=== PATIENT | male | born 1945 | race Caucasian/White ===

== ENCOUNTER 2021-03-10 21:09 | Inpatient (IN) | payer OTHER, MEDICARE ==
[~2021-03-10] VITALS: Ht 180.3 cm; Wt 81.1 kg
[~2021-03-10 21:09] MED LIST: AMOCLA875 PO; BENAML20/5 PO; HYDR1TAB94 PO; LOSHYD PO
[2021-03-10 21:48] LABS: BASOPHILS ABSOLUTE AUTO 0.08 K/mm3 (0.00-0.23); BASOPHILS PERCENT AUTO 1 % (0-2); EOSINOPHILS ABSOLUTE AUTO 0.21 K/mm3 (0.00-0.68); EOSINOPHILS PERCENT AUTO 2 % (0-6); Hematocrit 44.9 % (37.0-53.0); Hemoglobin 14.6 g/dL (13.5-17.5); IMMATURE GRAN ABSOLUTE AUTO 0.04 K/mm3 (0.00-0.10); IMMATURE GRAN PERCENT AUTO 0 % (0-1); LYMPHOCYTES ABSOLUTE AUTO 2.03 K/mm3 (0.84-5.20); LYMPHOCYTES PERCENT AUTO 19 % (21-46); MONOCYTES PERCENT AUTO 9 % (4-13); Mean Corpuscular HGB 28.2 pg (26.0-34.0); Mean Corpuscular HGB Conc 32.5 g/dL (31.5-36.5); Mean Corpuscular Volume 87 fL (80-100); Mean Platelet Volume 10.8 fL (9.1-12.4); NEUTROPHILS ABSOLUTE AUTO 7.24 K/mm3 (1.96-9.15); NEUTROPHILS PERCENT AUTO 68 % (41-73); Platelet Count 221 K/mm3 (150-400); RDW Coefficient Variation 14.6 % (11.7-14.2); RDW Standard Deviation 46.5 fL (35.1-46.3); Red Blood Cell Count 5.17 M/mm3 (4.30-5.90)
[2021-03-10 22:08] LABS: Alanine Aminotransfer (ALT/SGP 32 U/L (12-78); Albumin, Blood 3.7 g/dL (3.4-5.0); Albumin/Globulin Ratio 0.9 (0.8-1.8); Alk Phos 61 U/L (50-136); Anion Gap 4 mmol/L (6-16); Aspartate Aminotrans (AST/SGOT 21 U/L (12-37); Bilirubin, Total 0.4 mg/dL (0.1-1.0); Blood Urea Nitrogen 16 mg/dL (8-24); Bun/Creatinine Ratio 16.1 (12.0-20.0); CO2, Blood 27 mmol/L (21-32); Calcium, Blood 9.2 mg/dL (8.5-10.1); Chloride, Blood 108 mmol/L (98-108); Creatinine, Blood 0.99 mg/dL (0.60-1.20); Glomerular Filtration Rate >60 (60-); Glucose, Blood 127 mg/dL (70-99); Sodium, Blood 139 mmol/L (136-145); Total Protein, Blood 7.7 g/dL (6.4-8.2)
[2021-03-11 00:04] LABS: International Normalized Ratio 1.03; Prothrombin Time Results 10.8 Sec (9.7-11.5)
[2021-03-11 01:51] LABS: Influenza A, PCR NEGATIVE (NEGATIVE); Influenza B, PCR NEGATIVE (NEGATIVE); Resp Syncytial Virus, PCR NEGATIVE (NEGATIVE); SARS-Cov-2 (COVID-19) PCR, MMC NEGATIVE (NEGATIVE)
--- NOTE | 2021-03-11 05:54 | NUR ---
SHIFT SUMMARY ASSUMED CARE OF PT 0200. PT IS A/OX4. HEART SOUNDS REGULAR, LUNG SOUDNS CLEAR. PT GAIT IS STEADY. ELECTRICAL CONTROLS ENGINEER STRENGTH EQUAL AND PLANTAR AND DORSAL FLEXTION EQUAL. PT ONLY COMPLAINT WAS NUMBNESS ON HIS R SIDE. THIS AM DURING MORENING VIALS PT STATED THAT THE NUMBNESS WAS GETTING BETTER. CALL LIGHT IN REACH, BED IN LOWEST POSTION.
--- NOTE | 2021-03-11 11:33 | NUR ---
AM ASSESSMENT: PATIENT A&O X4, PLEASANT. PATIENT REPORTS NUMBNESS HAS LESSENED BUT STILL PRESENT. DR. CEDENO ROUNDED AND ORDERED MRI. HE WOULD LIKE TO D/C PATIENT TODAY PENDING WHAT MRI SHOWS. PT WORKED WITH PATIENT AND EDUCATED HOW TO USE A CANE. PATIENT IS VERY ACTIVE IN HIS HOME LIFE AND LIKES TO MOVE AROUND THE ROOM. PATIENT WAS TAKEN OFF TELEMETRY AND TRANSFERRED TO RADIOLOGY AROUND 1130. THIS RN SPOKE TO THE AT 1030 AND UPDATED HER ON THE CARE PLAN. IS UNABLE TO DRIVE AT NIGHT SO WILL NEED A COUNTY COURT JUDGE IF PATIENT IS D/C'D AFTER 1600.
[2021-03-11] MEDS ORDERED: Aspir 8181 MG PO (14:13)
[2021-03-11] MEDS ORDERED: Crestor20 MG PO (14:14)
[2021-03-11] MEDS ORDERED: CLOP75 PO (14:14)
[2021-03-11] MEDS ORDERED: Prinivil10 MG PO (14:21)
--- NOTE | 2021-03-11 15:16 | NUR ---
SHIFT SUMMARY: PATIENT WILL FOLLOW-UP WITH [facility] FOR ECHO. EDUCATION RE: STROKE AND NEW MEDICATIONS WAS PROVIDED. DISCHARGED AT 1500 TO HOME. PATIENT WAS WHEELED TO 'S VEHICLE. RX WAS SENT TO [facility] VIA FAX. PATIENT TO FOLLOW UP WITH PCP.
--- NOTE | 2021-03-11 18:57 | NUR ---
PRESCRIPTIONS WERE FAXED TO [facility] PER PATIENT REQUEST. PATIENT IS A [facility] AND WANTED TO DIRECTOR FOOD AND BEVERAGE HIS MEDICATIONS AT [facility] ON THE WEEKEND. MULTIPLE ATTEMPTS TO CALL [facility] TO CONFIRM PRESCRIPTIONS BUT THEY DID NOT ANSWER.
== END 2021-03-11 15:15 | disposition home or self-care (01) | DRG 305 ==
LOC: ER 21:09 → PCU 03-11 01:25
PROVIDERS: Physician Assistant; Student in an Organized Health Care Education/Training Program; ADMIT Internal Medicine
DX: I16.0 Hypertensive urgency (principal); G45.9 Transient cerebral ischemic attack, unspecified; I10 Essential (primary) hypertension; Z91.14 Patient's other noncompliance with medication regimen; Z86.73 Personal history of transient ischemic attack (TIA), and cerebral infarction without residual deficits; Z90.49 Acquired absence of other specified parts of digestive tract; Z87.891 Personal history of nicotine dependence; Z20.822 Contact with and (suspected) exposure to COVID-19; Z79.899 Other long term (current) drug therapy; Z23 Encounter for immunization; Z88.1 Allergy status to other antibiotic agents; Z98.890 Other specified postprocedural states; R29.701 NIHSS score 1
CPT/HCPCS: 0241U; 36415; 70450; 70551; 80053; 82947; 85025; 85610; 93005; 93010; 97110; 97116; 97161; 99285-25; A9270; G0378

== ENCOUNTER 2023-04-03 09:36 | Day surgery (SDC) | payer MEDICARE ==
[~2023-04-03] VITALS: Ht 180.3 cm; Wt 82.2 kg
[~2023-04-03 09:36] MED LIST changes: +AMLODIPINE-BEN1 EACH PO; +Aspir 8181 MG PO; +CLOP75 PO; +Crestor20 MG PO; +HYDCHL12.5 PO; +Prinivil10 MG PO
[2023-04-03 12:17] VITALS: BP 133/69
--- NOTE | 2023-04-03 12:19 | NUR ---
04/03/23 1219 Jessica Luu IV DC'D, CATH INTACT. PT TOLERATED WELL. GAUZE/COBAN IN PLACE
== END 2023-04-03 12:19 | disposition home or self-care (01) ==
LOC: ORSCSDS 09:36
PROVIDERS: Internal Medicine Gastroenterology
PROC: 0DBN8ZZ Excision of Sigmoid Colon, Via Natural or Artificial Opening Endoscopic (ICD-10-PCS; principal; 2023-04-03 11:00)
DX: K62.5 Hemorrhage of anus and rectum (principal); R19.5 Other fecal abnormalities; D49.0 Neoplasm of unspecified behavior of digestive system; K64.8 Other hemorrhoids; K57.30 Diverticulosis of large intestine without perforation or abscess without bleeding; Z87.891 Personal history of nicotine dependence; Z79.899 Other long term (current) drug therapy
CPT/HCPCS: 82947; J2704; J7120